=== PATIENT | female | born 1955 | race Caucasian/White ===

== ENCOUNTER 2016-07-13 22:07 | Emergency (ER) | payer OTHER ==
[2016-07-13 22:15] VITALS: BP 115/59; PULSE 80; RESP 16; TEMP 98.1; O2SAT 99
--- NOTE | 2016-07-13 23:00 | DX ---
Right Knee, 5 Views Clinical Indications: Knee pain, swelling, and stiffness. Findings: No fracture. Joint spaces have normal thickness, and articular cortex is smooth. Small j oint effusion is present in the suprapatellar bursa. Impression: 1. Small joint effusion. 2. Mild arthritic changes.
--- NOTE | 2016-07-13 23:06 | EDPHY ---
H & P Smoking Status: Former smoker Time Seen by Provider: 07/13/16 23:02 HPI/ROS: HPI: 60-year-old female presents to emergency department with chief concern sudden-onset right knee pain that began 45 minutes prior to arrival. Was at home sitting on a tall stool, felt pain in her knee, and was unable to bear weight. No knee trauma. No calf pain or tenderness. Reports decreased range of motion and pain in her entire knee. Took 600 mg of ibuprofen prior to arrival. ROS:10 point review of systems is negative other than as stated in HPI (Britta Vasquez) Physical Exam: Vital signs stable, reviewed by me General: Awake, alert, calm, cooperative. No acute distress. Head: Normalocephalic. Atraumatic. EENT: PERRLA. EOMI. Neck: Supple, nontender. No midline tenderness, full ROM. Respiratory: Breathing unlabored. CV: Chest nontender, atraumatic. Distal pulses 2+. Brisk cap refill all extremities. GI: Deferred Neuro: Alert. Oriented x 3. Sensation intact all extremities. Skin: Skin warm, dry, intact. No ecchymosis, abrasions, or lacerations. Extremities: No discomfort to palpation of the right hip, leg, ankle or foot. Full ROM. No deformity, ecchymosis, swelling, erythema, abrasions or lacerations noted. There is discomfort to palpation of the medial, lateral, superior, and posterior knee. Significantly decreased flexion and extension. Negative valgus and varus stress. Negative Fernanda. Negative AP drawer. Negative ballotment. (Britta Vasquez) Constitutional: Initial Vital Signs Temperature (C) 36.7 C 07/13/16 22:11 Heart Rate 80 07/13/16 22:11 Respiratory Rate 16 07/13/16 22:11 Blood Pressure 115/59 L 07/13/16 22:11 O2 Sat (%) 99 07/13/16 22:11 O2 Delivery Mode Room Air Allergies/Adverse Reactions: No Known Allergies Allergy (Unverified 07/13/16 22:15) Home Medications: Medication Instructions Recorded Ativan 07/13/16 LaMICtal 07/13/16 [place] Carbonate 07/13/16 PRISTIQ 07/13/16 Sonata 07/13/16 Medical Decision Making - Diagnostics Imaging: Right Knee, 5 Views Clinical Indications: Knee pain, swelling, and stiffness. Findings: No fracture. Joint spaces have normal thickness, and articular cortex is smooth. Small joint effusion is present in the suprapatellar bursa. Impression: 1. Small joint effusion. 2. Mild arthritic changes. Dictated By: Michael Philippe MD (Britta Vasquez) ED Course/Re-evaluation: Patient given knee brace. Neurovascular status intact after application. Instructed in use of crutches. (Britta Vasquez) Differential Diagnosis: Differential diagnosis includes but is not limited to arthritis, dislocation, fracture, bursitis, meniscal injury, ligament injury (Britta Vasquez) - Data Points Medications Given: Discontinued Medications Acetaminophen/Hydrocodone Bitart ([place] 5/325mg Prepack#6) 1 btl TAKEHOME EDNOW ONE Stop: 07/13/16 23:20 Last Admin: 07/13/16 23:34 Dose: 1 btl Departure - Departure Disposition: Home, Routine, Self-Care Clinical Impression: Right knee pain Qualifiers: Chronicity: acute Qualifier Code: (M25.561) Pain in right knee Condition: Good Instructions: Knee Pain (ED) Additional Instructions: Plan: You may use 600 mg of ibuprofen every 6 hours for fever, inflammation, or pain. Always take ibuprofen with food and stay well hydrated while taking. Do not exceed the maximum allowable dose in a 24 hour period which is 2400 mg. You may use 1000mg of Tylenol every 8 hours. This may be staggered with the ibuprofen. Do not exceed the maximum dose in a 24 hour period which is 3 GM or 3000 mg. ice every 1-2 hours for 20 minutes for the the next 2-3 days Wear knee brace while up and about Use crutches for touch toe weight-bearing Follow up with orthopedist at [place] with your x-ray Monday or Monday--When you call to schedule appointment, please let the office know you are an "ER follow up" appointment" Referrals: Patient,NotPresent [Unknown] - As per Instructions
[2016-07-13] MEDS ORDERED: HYDROCOD/APAP 5/325 PREPACK#6 BTL TAKEHOME ONE (23:19)
== END 2016-07-13 23:36 | disposition home or self-care (01) ==
DX: M25.561 Pain in right knee (principal); Z87.891 Personal history of nicotine dependence
CPT/HCPCS: L1830